=== PATIENT | female | born 1995 | race Asian ===

== ENCOUNTER → 2016-06-06 | Outpatient (CLI) | payer OTHER ==
--- NOTE | 2016-06-06 14:27 | MAMMOGRAPHY REPORT ---
ULTRASOUND OF RIGHT BREAST: 06/06/2016 CLINICAL HISTORY: 21-year-old woman presents with 2 palpable lumps in the right breast approximate 3 :30 and 6:00 axes. No skin changes or nipple discharge. No known family history of breast cancer. COMPARISON: No prior exams were available for comparison. FINDINGS: Real-time high-resolution ultrasound was performed in the areas of palpable lumps within the right breast which were pointed out by the patient. There is a discrete firm 1 cm mobile mass i n the 3:30 right breast correlating with the palpable concern pointed out by the patient. Another d iscrete firm nodular area is identified on palpation in the 6:00 to 6:30 right breast. On ultrasoun d in the right 3:30 breast, 6 cm from the nipple, there is a parallel hypoechoic solid lobulated mas s measuring 18.1 x 8.3 x 18.4 mm. In the 6:00 right breast, 3 cm from the nipple, there is dense fi bronodular tissue without evidence of a discrete solid or cystic mass. The mass in the 3:[address] likely represents a benign fibroadenoma, but given that not all of the borders are completely cir cumscribed and size greater than 1 cm, definitive characterization with tissue sampling is recommend ed. IMPRESSION: ACR BI-RADS CATEGORY 4: SUSPICIOUS - FOLLOW-UP RECOMMENDED 1. Ultrasound guided core needle biopsy is recommended for a solid palpable 18 mm mass in the 3:30 right breast, which most likely represents a fibroadenoma. 2. Clinical follow-up is recommended for the nodular area in the 6:00 to 6:30 right breast, for whi ch no sonographic abnormality was identified, as biopsy of a clinically suspicious mass based on pal pation should not be precluded by negative imaging. These results and recommendations were discussed with the patient at the time of the exam. She tent atively scheduled the right breast biopsy in the 3:30 axis prior to leaving our department. Ashley Schwarz M.D. ay/:06/06/2016 11:12:33 Gerontological Nurse Practitioner: Sunita CROWELL)(Ashlie), [facility] letter sent: Abnormal 4/5 BI-RADS Code: ACR BI-RADS Category 4: Suspicious
== END | disposition home or self-care (01) ==
LOC: C.MAMM 10:35
PROVIDERS: ATTEND Nurse Practitioner Women's Health
DX: N63 Unspecified lump in breast (principal)

== ENCOUNTER → 2016-06-15 | Outpatient (CLI) | payer OTHER ==
--- NOTE | 2016-06-15 09:49 | Discharge Instructions ---
Discharge Instructions Procedure Procedure Date: Jun 15, 2016. Reason for visit: Right Breast Mass. Discharge Discharge Date: Jun 15, 2016. Discharge Diagnosis: status post breast biopsy Instructions Activity Recommendations: Additional Limitations (see below) Return to School/Work: no limitations Recommended Home Diet: No Limitations Provider Instructions: ACTIVITY RECOMMENDATIONS: * No lifting, pushing, pulling or exercising the affected side for three days. RETURN TO SCHOOL/WORK: * You may return to work/school after the procedure, but do not perform any strenuous activities for 24 to 48 hours. MEDICATIONS: * Tylenol (two 325 mg) every four to six hours if needed for mild pain (if not allergic to Tylenol). DIET: * Resume previous diet. SPECIAL CARE INSTRUCTIONS: * Keep biopsy site dry for 24 hours. May shower after 24 hours, but do not soak (bathe) incision. * May remove Tegaderm (plastic patch) tomorrow AFTER showering. * Leave the steri-strips on for one week. Allow the steri-strips to fall off by themselves. If not off after one week, you may remove them. You may place a Bandaid crosswise over the strips, if desired. * Apply ice 10 minutes on and 10 minutes off as needed. * Wear a bra at bedtime to sleep more comfortably for 2-3 days. * Your referring physician should have the results after approximately 5 to 7 business days. * Call for unusual bleeding, fever, drainage, etc or if you have any questions call during normal business hours or after hours call Dr Louis, . FOLLOW UP VISIT: Follow-up with Referring Physician as scheduled. David Harleyy Recommendations: Call your doctor if: * Temperature above 101 degrees * Pain not relieved by pain medicine ordered * There is increased drainage or redness from any incision * You have any unanswered questions or concerns. Your Doctors Instructions noted above were prepared by provider Celine Louis. Patient Signature Section: Patient Instructions Signature Page Landy Ivy Patient (or Guardian) Signature/Date: I have read and understand the instructions given to me by my caregivers. Caregiver/RN/Doctor Signature/Date: The above-named patient and/or guardian has received patient instructions on this date. + Original Patient Signature Page (only) stays with chart. Please make copy for patient.
--- NOTE | 2016-06-15 14:41 | MAMMOGRAPHY REPORT ---
ULTRASOUND GUIDED BIOPSY RIGHT BREAST: 06/15/2016 CLINICAL HISTORY: Right 3:30 breast mass. PATIENT CONSENT: The procedure, risks and benefits were discussed with the patient and informed writ ten consent was obtained. A timeout was performed immediately prior to the procedure. PROCEDURE DESCRIPTION: With ultrasound guidance, aseptic technique, and lidocaine as the local anest hetic (1% lidocaine to anesthetize the skin and 1% lidocaine with epinephrine to anesthetize the andi per tissues), the mass of concern in the right 3:30 breast was sampled 4 times with a 14-gauge Achie ve biopsy needle. Immediately thereafter, with ultrasound guidance, aseptic technique, and lidocaine as the local anesthetic, a metallic localizer clip was placed centrally in the mass. Direct pressu re was applied to the site immediately post procedure and hemostasis was achieved. The patient tole rated the procedure without complication. She was given wound care instructions. The specimens were sent to pathology for analysis. COMPARISON: Comparison is made to exam dated: 06/06/2016 ultrasound - [facility]. IMPRESSION: ULTRASOUND GUIDED BIOPSY Ultrasound-guided biopsy of the right 3:30 breast mass, with clip placement. The patient will recei ve pathology results from her referring provider. Celine Louis M.D. /:06/15/2016 09:51:53 Batch Tank Controller: Diana NAVARRO(Ranjith)(M), [facility]
== END | disposition home or self-care (01) ==
LOC: C.MAMM 09:22
PROVIDERS: ATTEND Nurse Practitioner Women's Health
DX: D24.1 Benign neoplasm of right breast (principal)